=== PATIENT | female | born 1970 | race Caucasian/White ===

== ENCOUNTER 2016-12-28 00:57 | Emergency (ER) | payer BC ==
[~2016-12-28] VITALS: Ht 160 cm; Wt 45.4 kg
[~2016-12-28 00:57] MED LIST: ALBUTEROL0.09 MG/A2 INH; ANTIVERT25 MG PO; ASPIRIN PO; BACTRIM DS 8001 TA1 PO; BIAXIN500 MG PO; CIPRODEX 0.3%-7.5 ML OT; CIPROFLOXACIN500 MG PO; CLARITIN10 MG PO; IBUPROFEN400 MG PO; LEVOFLOXACIN500 MG PO; PREDNICOT20 MG PO; PREDNISONE20 M1 PO; PROVENTIL0.09 MG/AC IH; VICODIN 5/500 505 MG PO; ZITHROMAX Z PA250 MG PO; ZITHROMAX250 MG PO
[2016-12-28] MEDS ORDERED: ZITHROMAX250 MG PO (01:16)
[2016-12-28] MEDS ORDERED: FLONASE ALLERG9.9 ML NS (01:16)
[2016-12-28] MEDS ORDERED: GOOD NEIGHBOR L10 MG PO (01:35)
[2016-12-28] MEDS ORDERED: VITAMIN D5000 I3 PO (01:35)
== END 2016-12-28 02:10 | disposition home or self-care (01) ==
LOC: ED 00:57
DX: J40 Bronchitis, not specified as acute or chronic (principal); J01.90 Acute sinusitis, unspecified; F17.200 Nicotine dependence, unspecified, uncomplicated; Z88.0 Allergy status to penicillin; Z79.899 Other long term (current) drug therapy

== ENCOUNTER 2018-02-11 23:22 | Emergency (ER) | payer BC ==
[~2018-02-11] VITALS: Ht 162.5 cm; Wt 45.4 kg
[~2018-02-11 23:22] MED LIST changes: +FLONASE ALLERG9.9 ML NS; +GOOD NEIGHBOR L10 MG PO; +VITAMIN D5000 I3 PO
[2018-02-12] MEDS ORDERED: PROAIR HFA8.5 GM INH (00:47)
[2018-02-12] MEDS ORDERED: ZITHROMAX250 MG PO (00:47)
[2018-02-12] MEDS ORDERED: PREDNISONE20 M1 PO (00:47)
[2018-03-08] MEDS ORDERED: CLINDAMYCIN150 MG PO (02:43)
== END 2018-02-12 00:46 | disposition home or self-care (01) ==
LOC: ED 23:22
DX: J43.9 Emphysema, unspecified (principal); J20.9 Acute bronchitis, unspecified; Z88.0 Allergy status to penicillin; Z79.899 Other long term (current) drug therapy; Z79.2 Long term (current) use of antibiotics

== ENCOUNTER → 2020-02-09 | Outpatient (CLI) | payer BC ==
[~2020-02-09] MED LIST changes: +CLINDAMYCIN150 MG PO; +PROAIR HFA8.5 GM INH
== END | disposition home or self-care (01) ==
LOC: COVID19 00:55
DX: Z20.828 Contact with and (suspected) exposure to other viral communicable diseases (principal)

== ENCOUNTER → 2020-07-01 | Outpatient (CLI) | payer OTHER | END | disposition home or self-care (01) | LOC: COVID19 13:02 | PROVIDERS: ATTEND Family Medicine | DX: Z20.828 Contact with and (suspected) exposure to other viral communicable diseases (principal) ==

== ENCOUNTER → 2020-10-07 | Outpatient (CLI) | payer OTHER ==
[2020-10-07 13:16] LABS: MEAN CELL VOLUME 108.2 fl (81.0-99.0); MEAN CORPUSCULAR HGB 36.8 pg (27.0-31.0); MEAN PLATELET VOLUME 10.2 fl (9.6-12.3); PLATELET COUNT AUTOMATED 143 10*3/uL (130-400); RED BLOOD COUNT 4.16 10*6/uL (4.10-5.10); RED CELL DISTRI WIDTH 14.2 % (0-14.5); WHITE BLOOD COUNT 6.8 10*3/uL (4.8-10.8)
[2020-10-07 13:32] LABS: PLATELET SUFFICIENCY NORMAL (NORMAL); POLYCHROMASIA SLIGHT; TOTAL CELLS COUNTED 100 #CELLS; VACUOLATION OF NEUTROPHILS SLIGHT
[2020-10-07 13:45] LABS: ALBUMIN 3.2 gm/dl (3.1-4.5); ALKALINE PHOSPHATASE 170 U/L (45-117); CHLORIDE 101 mmol/L (98-107); CREATININE 0.56 mg/dL (0.55-1.02); FREE T4 0.89 ng/dl (0.76-1.46); POTASSIUM 3.4 mmol/L (3.5-5.1); SGOT/AST 444 IU/L (3-35); SGPT/ALT 176 U/L (12-78); SODIUM 137 mmol/L (136-145); TOTAL PROTEIN 7.2 gm/dL (6.4-8.2)
[2020-10-07 13:51] LABS: BUN < 1 mg/dl (7-24)
== END | disposition home or self-care (01) ==
LOC: LAB 12:59
PROVIDERS: ATTEND Family Medicine
DX: R60.0 Localized edema (principal)

== ENCOUNTER 2021-03-14 15:27 | Inpatient (IN) | payer OTHER ==
[~2021-03-14] VITALS: Ht 160 cm; Wt 44.2 kg
[2021-03-14 15:46] VITALS: BP 78/48
[2021-03-14 15:57] VITALS: BP 100/56
[2021-03-14 16:43] LABS: BASO % 0.4 % (0.0-1.0); EOS # 0.2 10*3/uL (0.0-0.4); EOS % 2.2 % (1.0-4.0); HEMATOCRIT 28.4 % (37.0-47.0); LYMPH # 1.2 10*3/uL (1.3-4.4); MEAN CELL VOLUME 106.4 fl (81.0-99.0); MEAN CORPUSCULAR HGB 36.7 pg (27.0-31.0); MEAN CORPUSCULAR HGB CONC 34.5 g/dl (33.0-37.0); MEAN PLATELET VOLUME 10.7 fl (9.6-12.3); MONO # 0.8 10*3/uL (0.1-1.0); MONO % 9.9 % (3.0-9.0); NEUT # 5.9 10*3/uL (2.3-7.9); NEUT % 72.1 % (47.0-73.0); PLATELET COUNT AUTOMATED 172 10*3/uL (130-400); RED BLOOD COUNT 2.67 10*6/uL (4.10-5.10); RED CELL DISTRI WIDTH 12.5 % (0-14.5); WHITE BLOOD COUNT 8.1 10*3/uL (4.8-10.8)
[2021-03-14 16:59] LABS: ALBUMIN 1.8 gm/dl (3.1-4.5); ALKALINE PHOSPHATASE 116 U/L (45-117); BUN 5 mg/dl (7-24); CHLORIDE 91 mmol/L (98-107); LIPASE 30 U/L (73-393); SGOT/AST 33 IU/L (3-35); SGPT/ALT 32 U/L (12-78); SODIUM 128 mmol/L (136-145); TOTAL PROTEIN 6.4 gm/dL (6.4-8.2)
[2021-03-14 17:02] LABS: ETHYL ALCOHOL < 3.0 mg/dl (<3); POTASSIUM 1.9 mmol/L (3.5-5.1); TROPONIN I < 0.015 ng/ml (<0.045)
[2021-03-14] MEDS ORDERED: CITALOPRAM20 MG PO (17:11)
[2021-03-14] MEDS ORDERED: B COMPLEX1 EACH PO (17:13)
[2021-03-14] MEDS ORDERED: DULERA 50 MCG-513 GM INH (17:17)
[2021-03-14] MEDS ORDERED: LEVETIRACETAM1000 M1 PO (17:17)
[2021-03-14] MEDS ORDERED: PANTOPRAZOLE SO40 MG PO (17:20)
[2021-03-14 18:05] VITALS: BP 86/54
[2021-03-14] MEDS ORDERED: BUDESONIDE-FO10.2 G1 INH (18:46)
[2021-03-14 19:18] VITALS: BP 90/59
[2021-03-14] MEDS ORDERED: LANSOPRAZOLE30 MG PO (19:38)
[2021-03-14] MEDS ORDERED: CETIRIZINE HYDR10 MG PO (19:39)
[2021-03-14 20:13] VITALS: BP 90/48
[2021-03-14 20:35] VITALS: BP 91/70
[2021-03-14 20:39] LABS: THYROID STIM HORMONE (HS) 2.98 uIU/ml (0.358-4.75)
[2021-03-15] VITALS: BP 90/31
[2021-03-15 06:46] LABS: HEMATOCRIT 27.5 % (37.0-47.0); MEAN CELL VOLUME 108.7 fl (81.0-99.0); MEAN CORPUSCULAR HGB 36.4 pg (27.0-31.0); MEAN CORPUSCULAR HGB CONC 33.5 g/dl (33.0-37.0); MEAN PLATELET VOLUME 11.4 fl (9.6-12.3); PLATELET COUNT AUTOMATED 196 10*3/uL (130-400); RED BLOOD COUNT 2.53 10*6/uL (4.10-5.10); RED CELL DISTRI WIDTH 12.7 % (0-14.5)
[2021-03-15 06:50] LABS: ALBUMIN 1.7 gm/dl (3.1-4.5); BUN 2 mg/dl (7-24); CHLORIDE 110 mmol/L (98-107); POTASSIUM 2.8 mmol/L (3.5-5.1); SODIUM 139 mmol/L (136-145)
[2021-03-15 06:54] LABS: ALKALINE PHOSPHATASE 106 U/L (45-117); SGOT/AST 31 IU/L (3-35); SGPT/ALT 29 U/L (12-78); TOTAL PROTEIN 5.7 gm/dL (6.4-8.2)
[2021-03-15 06:57] LABS: CREATININE < 0.15 mg/dL (0.55-1.02)
[2021-03-15 07:51] LABS: BASOPHILS 1 % (0-1); PLATELET SUFFICIENCY NORMAL (NORMAL); TOTAL CELLS COUNTED 100 #CELLS
[2021-03-15 07:53] LABS: BURR CELLS FEW
[2021-03-15 08:00] VITALS: BP 93/57
[2021-03-15 12:00] VITALS: BP 82/49
[2021-03-15 16:00] VITALS: BP 106/61
[2021-03-15 17:05] LABS: BILIRUBIN Negative (Negative); BLOOD Negative (Negative); CLARITY Cloudy (Clear); COLOR Yellow (Yellow); GLUCOSE Negative (Negative); KETONE Negative (Negative); LEUKO ESTERASE 2+ (Negative); NITRITE Positive (Negative); SPECIFIC GRAVITY 1.015 (1.001-1.030); UROBILINOGEN 0.2 E.U./dl (0.0-1.0)
[2021-03-15 17:14] LABS: BACTERIA 3+; EPITHELIAL CELLS TNTC; RBC 0-2 rbc/hpf (0-2); URINE AMPHETAMINES < 1000 (1000ng/ml); URINE BARBITURATES < 200 (200ng/ml); URINE BENZODIAZEPINES < 200 (200ng/ml); URINE CANNABINOIDS (THC) < 50 (50ng/ml); URINE COCAINE < 300 (300ng/ml); URINE METHADONE < 300 (300ng/ml); URINE OPIATES < 300 (300ng/ml); URINE PHENCYCLIDINE < 25 (25ng/ml)
[2021-03-15 20:00] VITALS: BP 100/66
[2021-03-16] VITALS: BP 90/40
[2021-03-16 05:41] VITALS: BP 100/39
[2021-03-16 06:33] LABS: MEAN CELL VOLUME 109.3 fl (81.0-99.0); MEAN CORPUSCULAR HGB 36.8 pg (27.0-31.0); MEAN CORPUSCULAR HGB CONC 33.7 g/dl (33.0-37.0); PLATELET COUNT AUTOMATED 214 10*3/uL (130-400); RED BLOOD COUNT 2.47 10*6/uL (4.10-5.10); RED CELL DISTRI WIDTH 12.6 % (0-14.5); WHITE BLOOD COUNT 7.2 10*3/uL (4.8-10.8)
[2021-03-16 06:46] LABS: ALBUMIN 1.7 gm/dl (3.1-4.5); CHLORIDE 109 mmol/L (98-107); CREATININE 0.25 mg/dL (0.55-1.02); IRON 104 ug/dL (50-170); SGOT/AST 31 IU/L (3-35); SGPT/ALT 29 U/L (12-78); SODIUM 136 mmol/L (136-145); TOTAL IRON BINDING CAPACITY 177 ug/dl (250-450); TOTAL PROTEIN 5.6 gm/dL (6.4-8.2)
[2021-03-16 06:47] LABS: ALKALINE PHOSPHATASE 111 U/L (45-117)
[2021-03-16 06:51] LABS: BUN < 1 mg/dl (7-24); POTASSIUM 3.9 mmol/L (3.5-5.1)
[2021-03-16 07:12] LABS: BASOPHILS 1 % (0-1); TOTAL CELLS COUNTED 100 #CELLS
[2021-03-16 07:13] LABS: BURR CELLS FEW; PLATELET SUFFICIENCY NORMAL (NORMAL)
[2021-03-16 08:00] VITALS: BP 93/54
[2021-03-16 11:40] VITALS: BP 101/48
[2021-03-16 16:00] VITALS: BP 94/57
[2021-03-16 20:00] VITALS: BP 105/60
[2021-03-17] VITALS: BP 107/65
[2021-03-17 06:52] LABS: HEMATOCRIT 26.2 % (37.0-47.0); MEAN CELL VOLUME 109.6 fl (81.0-99.0); MEAN CORPUSCULAR HGB 36.4 pg (27.0-31.0); MEAN CORPUSCULAR HGB CONC 33.2 g/dl (33.0-37.0); MEAN PLATELET VOLUME 10.9 fl (9.6-12.3); PLATELET COUNT AUTOMATED 208 10*3/uL (130-400); RED BLOOD COUNT 2.39 10*6/uL (4.10-5.10); RED CELL DISTRI WIDTH 12.8 % (0-14.5); WHITE BLOOD COUNT 6.3 10*3/uL (4.8-10.8)
[2021-03-17 07:09] LABS: ALBUMIN 1.7 gm/dl (3.1-4.5); ALKALINE PHOSPHATASE 106 U/L (45-117); CHLORIDE 107 mmol/L (98-107); CREATININE 0.26 mg/dL (0.55-1.02); SGOT/AST 32 IU/L (3-35); SGPT/ALT 30 U/L (12-78); SODIUM 136 mmol/L (136-145); TOTAL PROTEIN 5.5 gm/dL (6.4-8.2)
[2021-03-17 07:13] LABS: BUN < 1 mg/dl (7-24); POTASSIUM 2.9 mmol/L (3.5-5.1)
[2021-03-17 07:47] LABS: BASOPHILS 2 % (0-1); PLATELET SUFFICIENCY NORMAL (NORMAL); TOTAL CELLS COUNTED 100 #CELLS
[2021-03-17 08:00] VITALS: BP 100/56
[2021-03-17 12:00] VITALS: BP 104/49
[2021-03-17] MEDS ORDERED: MAGNESIUM OXID400 MG PO (14:31)
[2021-03-17] MEDS ORDERED: KLOR-CON M2020 ME1 PO (14:31)
[2021-03-17] MEDS ORDERED: LEVOFLOXACIN500 MG PO (14:36)
[2021-03-17] MEDS ORDERED: FLAGYL500 MG PO (14:47)
== END 2021-03-17 12:35 | disposition left against medical advice (07) | DRG 207 ==
LOC: ED 15:27 → 4E 18:36 → EDHOLD 18:36 → 5E 20:09 → 4E 21:29
PROVIDERS: Physician Assistant; Podiatrist Foot & Ankle Surgery; ADMIT Internal Medicine; ATTEND Internal Medicine
DX: I95.9 Hypotension, unspecified (principal); E87.6 Hypokalemia; E87.1 Hypo-osmolality and hyponatremia; D72.810 Lymphocytopenia; N39.0 Urinary tract infection, site not specified; E83.51 Hypocalcemia; R63.0 Anorexia; R73.9 Hyperglycemia, unspecified; R63.3 Feeding difficulties; Z20.822 Contact with and (suspected) exposure to COVID-19; E80.6 Other disorders of bilirubin metabolism; E83.42 Hypomagnesemia; E88.09 Other disorders of plasma-protein metabolism, not elsewhere classified; E87.8 Other disorders of electrolyte and fluid balance, not elsewhere classified; D53.9 Nutritional anemia, unspecified; K52.9 Noninfective gastroenteritis and colitis, unspecified; Z88.0 Allergy status to penicillin; Z79.899 Other long term (current) drug therapy; Z68.1 Body mass index [BMI] 19.9 or less, adult; Z53.29 Procedure and treatment not carried out because of patient's decision for other reasons; E43 Unspecified severe protein-calorie malnutrition

== ENCOUNTER 2021-04-23 19:25 | Emergency (ER) | payer OTHER ==
[~2021-04-23 19:25] MED LIST changes: +B COMPLEX1 EACH PO; +BUDESONIDE-FO10.2 G1 INH; +CETIRIZINE HYDR10 MG PO; +CITALOPRAM20 MG PO; +DULERA 50 MCG-513 GM INH; +FLAGYL500 MG PO; +KLOR-CON M2020 ME1 PO; +LANSOPRAZOLE30 MG PO; +LEVETIRACETAM1000 M1 PO; +MAGNESIUM OXID400 MG PO; +PANTOPRAZOLE SO40 MG PO
[2021-04-25] MEDS ORDERED: FUROSEMIDE40 MG PO (11:26)
== END 2021-04-23 22:18 | disposition left against medical advice (07) ==
LOC: ED 19:25
DX: Z00.8 Encounter for other general examination (principal); Z53.21 Procedure and treatment not carried out due to patient leaving prior to being seen by health care provider

== ENCOUNTER → 2021-07-07 | Outpatient (CLI) | payer OTHER ==
[~2021-07-07] MED LIST changes: +FUROSEMIDE40 MG PO
[2021-07-07 13:16] LABS: HEMATOCRIT 39.7 % (37.0-47.0); MEAN CELL VOLUME 101.5 fl (81.0-99.0); MEAN CORPUSCULAR HGB 31.7 pg (27.0-31.0); MEAN CORPUSCULAR HGB CONC 31.2 g/dl (33.0-37.0); MEAN PLATELET VOLUME 9.5 fl (9.6-12.3); PLATELET COUNT AUTOMATED 221 10*3/uL (130-400); RED BLOOD COUNT 3.91 10*6/uL (4.10-5.10); RED CELL DISTRI WIDTH 12.8 % (0-14.5); WHITE BLOOD COUNT 4.5 10*3/uL (4.8-10.8)
[2021-07-07 13:25] LABS: INTERNATIONAL NORM RATIO 1.1 (2.0-3.5)
[2021-07-07 13:30] LABS: ATYPICAL LYMPHS 2 % (0-0); BASOPHILS 1 % (0-1); TOTAL CELLS COUNTED 100 #CELLS
[2021-07-07 13:31] LABS: PLATELET SUFFICIENCY NORMAL (NORMAL); POLYCHROMASIA SLIGHT
[2021-07-07 13:33] LABS: ALKALINE PHOSPHATASE 64 U/L (45-117); BUN 4 mg/dl (7-24); CHLORIDE 107 mmol/L (98-107); CREATININE 0.38 mg/dL (0.55-1.02); POTASSIUM 3.4 mmol/L (3.5-5.1); SGOT/AST 16 IU/L (3-35); SGPT/ALT 19 U/L (12-78); SODIUM 140 mmol/L (136-145); TOTAL PROTEIN 7.2 gm/dL (6.4-8.2)
== END | disposition home or self-care (01) ==
LOC: LAB 12:43
PROVIDERS: ATTEND Internal Medicine
DX: J44.9 Chronic obstructive pulmonary disease, unspecified (principal); K72.90 Hepatic failure, unspecified without coma

== ENCOUNTER → 2021-10-21 | Day surgery (SDC) | payer OTHER ==
[2021-10-17 12:42] LABS: BASO # 0.1 10*3/uL (0.0-0.1); BASO % 0.7 % (0.0-1.0); EOS # 0.1 10*3/uL (0.0-0.4); EOS % 1.9 % (1.0-4.0); HEMATOCRIT 48.5 % (37.0-47.0); LYMPH # 2.4 10*3/uL (1.3-4.4); LYMPH % 32.7 % (27.0-41.0); MEAN CELL VOLUME 95.3 fl (81.0-99.0); MEAN CORPUSCULAR HGB 30.1 pg (27.0-31.0); MEAN CORPUSCULAR HGB CONC 31.5 g/dl (33.0-37.0); MEAN PLATELET VOLUME 9.5 fl (9.6-12.3); MONO # 0.7 10*3/uL (0.1-1.0); MONO % 9.2 % (3.0-9.0); NEUT # 4.1 10*3/uL (2.3-7.9); NEUT % 55.1 % (47.0-73.0); PLATELET COUNT AUTOMATED 187 10*3/uL (130-400); RED BLOOD COUNT 5.09 10*6/uL (4.10-5.10); WHITE BLOOD COUNT 7.5 10*3/uL (4.8-10.8)
[2021-10-17 12:54] LABS: BUN 5 mg/dl (7-24); CHLORIDE 110 mmol/L (98-107); CREATININE 0.49 mg/dL (0.55-1.02); POTASSIUM 4.1 mmol/L (3.5-5.1); SODIUM 140 mmol/L (136-145)
[2021-10-21] VITALS (13 sets, daily range): BP systolic 86–140; BP diastolic 40–90
[~2021-10-21] VITALS: Ht 160 cm; Wt 42.6 kg
[~2021-10-21] MED LIST changes: +CITALOPRAM40 MG PO; +HYDROCODONE-AC1 EAC1 PO; +INDERAL LA60 M1 PO; +KEPPRA1000 MG PO; +NEURONTIN300 MG PO; +TRAZODONE50 MG PO
== END | disposition home or self-care (01) ==
LOC: SDC 10-17 11:45
PROVIDERS: ATTEND Orthopaedic Surgery
DX: G56.02 Carpal tunnel syndrome, left upper limb (principal); G56.22 Lesion of ulnar nerve, left upper limb; J43.9 Emphysema, unspecified; K21.9 Gastro-esophageal reflux disease without esophagitis; Z86.73 Personal history of transient ischemic attack (TIA), and cerebral infarction without residual deficits; F41.9 Anxiety disorder, unspecified; F32.9 Major depressive disorder, single episode, unspecified; F17.210 Nicotine dependence, cigarettes, uncomplicated; Z79.899 Other long term (current) drug therapy; Z20.822 Contact with and (suspected) exposure to COVID-19

== ENCOUNTER → 2021-10-22 | Outpatient (CLI) | payer OTHER ==
[2021-10-22 10:28] LABS: THYROXINE (T4) TOTAL 10.7 ug/dl (4.8-13.9)
== END | disposition home or self-care (01) ==
LOC: LAB 09:46
PROVIDERS: ATTEND Surgery
DX: E04.1 Nontoxic single thyroid nodule (principal)

== ENCOUNTER → 2021-11-10 | Outpatient (CLI) | payer OTHER | END | disposition home or self-care (01) | LOC: US 14:00 | PROVIDERS: ATTEND Internal Medicine | DX: E04.1 Nontoxic single thyroid nodule (principal) ==

== ENCOUNTER → 2021-12-02 | Day surgery (SDC) | payer OTHER ==
[~2021-12-02] VITALS: Ht 160 cm; Wt 44.5 kg
[~2021-12-02] MED LIST changes: +NASAL MIST30 ML NAS
[2021-12-02 09:49] VITALS: BP 109/54
[2021-12-02 12:10] VITALS: BP 93/47
[2021-12-02 12:25] VITALS: BP 90/44
[2021-12-02 12:51] VITALS: BP 97/46
== END | disposition home or self-care (01) ==
LOC: SDC 11-28 13:15
PROVIDERS: ATTEND Orthopaedic Surgery
DX: G56.03 Carpal tunnel syndrome, bilateral upper limbs (principal); G56.23 Lesion of ulnar nerve, bilateral upper limbs; K21.9 Gastro-esophageal reflux disease without esophagitis; I10 Essential (primary) hypertension; F41.9 Anxiety disorder, unspecified; F32.9 Major depressive disorder, single episode, unspecified; Z86.73 Personal history of transient ischemic attack (TIA), and cerebral infarction without residual deficits; Z88.0 Allergy status to penicillin; J43.9 Emphysema, unspecified; Z79.899 Other long term (current) drug therapy

== ENCOUNTER → 2022-10-01 | Outpatient (CLI) | payer MEDICAID | END | disposition home or self-care (01) | LOC: LAB 14:27 | PROVIDERS: ATTEND Internal Medicine | DX: R50.9 Fever, unspecified (principal); Z20.822 Contact with and (suspected) exposure to COVID-19 ==

== ENCOUNTER 2023-01-21 14:10 | Emergency (ER) | payer MEDICAID ==
[~2023-01-21] VITALS: Ht 160 cm; Wt 44.5 kg
[2023-01-21] MEDS ORDERED: METRONIDAZOLE500 M1 PO (17:09)
[2023-01-21] MEDS ORDERED: CIPRO500 MG PO (17:09)
== END 2023-01-21 17:20 | disposition home or self-care (01) ==
LOC: ED 14:10
DX: S62.624A Displaced fracture of middle phalanx of right ring finger, initial encounter for closed fracture (principal); F17.200 Nicotine dependence, unspecified, uncomplicated; Z88.0 Allergy status to penicillin; Z79.899 Other long term (current) drug therapy; W54.0XXA Bitten by dog, initial encounter; Y93.89 Activity, other specified; Y92.098 Other place in other non-institutional residence as the place of occurrence of the external cause; Y99.8 Other external cause status

== ENCOUNTER → 2023-02-02 | Day surgery (SDC) | payer MEDICAID ==
[2023-02-01 11:27] LABS: CHLORIDE 109 mmol/L (98-107); POTASSIUM 3.9 mmol/L (3.4-5.1)
[2023-02-01 11:30] LABS: BUN < 5 mg/dl (9-23)
[~2023-02-02] VITALS: Ht 160 cm; Wt 44.5 kg
[~2023-02-02] MED LIST changes: +CIPRO500 MG PO; +METRONIDAZOLE500 M1 PO; +NEURONTIN800 MG PO
[2023-02-02 08:55] VITALS: BP 130/45
[2023-02-02 12:00] VITALS: BP 85/40
[2023-02-02 12:15] VITALS: BP 118/62
[2023-02-02 12:30] VITALS: BP 110/47
== END ==
LOC: SDC 02-01 11:00
PROVIDERS: ATTEND Orthopaedic Surgery
DX: S62.624A Displaced fracture of middle phalanx of right ring finger, initial encounter for closed fracture (principal); J44.9 Chronic obstructive pulmonary disease, unspecified; X58.XXXA Exposure to other specified factors, initial encounter; Y92.89 Other specified places as the place of occurrence of the external cause; Y93.89 Activity, other specified; Y99.8 Other external cause status

== ENCOUNTER → 2023-02-10 | Outpatient (CLI) | payer MEDICAID | END | disposition home or self-care (01) | LOC: ORTHO 02:14 | PROVIDERS: ATTEND Orthopaedic Surgery | DX: S62.624D Displaced fracture of middle phalanx of right ring finger, subsequent encounter for fracture with routine healing (principal); X58.XXXD Exposure to other specified factors, subsequent encounter ==

== ENCOUNTER → 2023-02-24 | Outpatient (CLI) | payer MEDICAID | END | disposition home or self-care (01) | LOC: ORTHO 01:41 | PROVIDERS: ATTEND Orthopaedic Surgery | DX: S62.624D Displaced fracture of middle phalanx of right ring finger, subsequent encounter for fracture with routine healing (principal); M19.041 Primary osteoarthritis, right hand; X58.XXXD Exposure to other specified factors, subsequent encounter ==

== ENCOUNTER → 2024-12-05 | Outpatient (CLI) | payer MEDICARE ==
[~2024-12-05] MED LIST changes: +BARIUM SULFATE 98% 340 GM BOT PO ONE
== END | disposition home or self-care (01) ==
LOC: RAD/SH 02:21
PROVIDERS: ATTEND Internal Medicine
DX: R13.10 Dysphagia, unspecified (principal)

== ENCOUNTER → 2024-12-12 | Outpatient (CLI) | payer MEDICARE ==
[~2024-12-12] MED LIST changes: +AVPAK LEVETIRA750 M1 PO; -BARIUM SULFATE 98% 340 GM BOT PO ONE; +GABAPENTIN800 MG PO; +OMEPRAZOLE40 MG PO; +QUETIAPINE FUMA50 M1 PO
[2024-12-12 13:56] LABS: BASO % 0.3 % (0.0-1.0); EOS # 0.1 10*3/uL (0.0-0.4); EOS % 0.9 % (1.0-4.0); HEMATOCRIT 39.5 % (37.0-47.0); MEAN CELL VOLUME 93.4 fl (81.0-99.0); MEAN CORPUSCULAR HGB 30.7 pg (27.0-31.0); MEAN CORPUSCULAR HGB CONC 32.9 g/dl (33.0-37.0); MEAN PLATELET VOLUME 10.3 fl (9.6-12.3); MONO # 0.5 10*3/uL (0.1-1.0); MONO % 7.1 % (3.0-9.0); NEUT # 3.1 10*3/uL (2.3-7.9); NEUT % 46.4 % (47.0-73.0); PLATELET COUNT AUTOMATED 270 10*3/uL (130-400); RED BLOOD COUNT 4.23 10*6/uL (4.10-5.10); RED CELL DISTRI WIDTH 13.4 % (0-14.5); WHITE BLOOD COUNT 6.8 10*3/uL (4.8-10.8)
[2024-12-12 14:26] LABS: ALKALINE PHOSPHATASE 76 U/L (46-116); BUN 7 mg/dl (9-23); CHLORIDE 100 mmol/L (98-107); POTASSIUM 3.8 mmol/L (3.4-5.1); VITAMIN D, 25-HYDROXY 9.9 ng/mL (30-100)
[2024-12-12 14:34] LABS: SGPT/ALT < 7 U/L (5-49)
== END | disposition home or self-care (01) ==
LOC: LAB 13:18
PROVIDERS: ATTEND Internal Medicine
DX: J90 Pleural effusion, not elsewhere classified (principal); J43.9 Emphysema, unspecified; J84.10 Pulmonary fibrosis, unspecified; R13.10 Dysphagia, unspecified

== ENCOUNTER 2025-01-09 18:04 | Emergency (ER) | payer MEDICARE ==
[~2025-01-09] VITALS: Ht 154.9 cm; Wt 39.0 kg
[~2025-01-09 18:04] MED LIST changes: +CEFUROXIME AXE500 MG PO
== END 2025-01-09 19:30 | disposition left against medical advice (07) ==
LOC: ED 18:04
DX: K94.23 Gastrostomy malfunction (principal); Z53.21 Procedure and treatment not carried out due to patient leaving prior to being seen by health care provider

== ENCOUNTER 2025-02-06 12:49 | Emergency (ER) | payer MEDICARE ==
[~2025-02-06] VITALS: Ht 157.4 cm; Wt 34.0 kg
[2025-02-06] MEDS ORDERED: DIATRIZOATE MEG/DIATRIZO. SOD 120 ML BOT ONE (13:50)
[2025-02-06] MEDS ORDERED: ZINC OXIDE 1 OZ TUBE T ONE (16:20)
[2025-02-06] MEDS ORDERED: [UNRECOGNIZED DRUG - OTHER] T ×2 (16:37→16:47)
== END 2025-02-06 16:52 | disposition home or self-care (01) ==
LOC: ED 12:49
DX: K94.23 Gastrostomy malfunction (principal); Z88.0 Allergy status to penicillin; Z88.1 Allergy status to other antibiotic agents; Z88.8 Allergy status to other drugs, medicaments and biological substances; Z79.899 Other long term (current) drug therapy; Z98.890 Other specified postprocedural states; Z87.891 Personal history of nicotine dependence; Z85.01 Personal history of malignant neoplasm of esophagus

== ENCOUNTER 2025-02-06 18:40 | Emergency (ER) | payer MEDICARE ==
[~2025-02-06] VITALS: Ht 165.1 cm; Wt 40.8 kg
[~2025-02-06 18:40] MED LIST changes: +[UNRECOGNIZED DRUG - OTHER] T
== END 2025-02-06 19:14 | disposition home or self-care (01) ==
LOC: ED 18:40
DX: K94.23 Gastrostomy malfunction (principal); Z88.0 Allergy status to penicillin; Z88.1 Allergy status to other antibiotic agents; Z88.8 Allergy status to other drugs, medicaments and biological substances; Z79.899 Other long term (current) drug therapy; Z98.890 Other specified postprocedural states; Z87.891 Personal history of nicotine dependence